=== PATIENT | female | born 1985 | race Caucasian/White ===

== ENCOUNTER 2017-07-11 12:10 | Emergency (ER) | payer MEDICAID ==
[~2017-07-11] VITALS: Wt 113.4 kg
[~2017-07-11 12:10] MED LIST: BP MEDICATION
[2017-07-11] MEDS ORDERED: SOD CHLORIDE 0.9% 1,000 ML IV STA (15:27)
[2017-07-11] MEDS ORDERED: KETOROLAC 30 MG INJ IV STA (15:27)
[2017-07-11] MEDS ORDERED: DIPHENHYDRAMINE 50 MG INJ IV ONE (15:30)
[2017-07-11] MEDS ORDERED: METOCLOPRAMIDE 10 MG INJ IV ONE (15:30)
--- NOTE | 2017-07-11 15:59 | RADRPT ---
PROCEDURE: XR Chest. CLINICAL INDICATION: Chest pain TECHNIQUE: Single frontal view of the chest was obtained COMPARISON: None FINDINGS: No pleural effusion or pneumothorax. No consolidation. Unremarkable cardiomediastinal silhouette. No acute osseous abnormality. IMPRESSION: No acute cardiopulmonary disease. RPTAT: EE James Hager Physician Date Time Electronically viewed and signed by James Hager Physician on 07/11/2017 15:59 /
--- NOTE | 2017-07-11 16:58 | RADRPT ---
PROCEDURE: CT Brain without contrast. CLINICAL INDICATION: Headache, lightheadedness and dizziness. TECHNIQUE: A CT of the brain was performed on a multidetector CT scanner utilizing axial sections from the skull base through the vertex without contrast. Images were reviewed on a high-resolution [employer] workstation. Exam CTDI = 44.81 mGy and the DLP = 720.23 mGy-cm. One or more of the following dose reduction techniques were used: Automated exposure control Adjustment of the mA and/or kV according to patient size. Use of iterative reconstruction technique. COMPARISON: None available FINDINGS: There is no evidence of intracranial hemorrhage, mass effect or midline shift. No abnormal intra-ax ial or extra-axial fluid collections are seen. The density of the brain is normal and the bailon/whit e matter differentiation is well preserved. The osseous structures are unremarkable. The paranasal sinuses are clear. IMPRESSION: 1. No intracranial hemorrhage, mass effect or midline shift. RPTAT: BB .John Allen MD, MD Date Time Electronically viewed and signed by .John Allen MD, on 07/11/2017 16:58 .O/
[2017-07-11] MEDS ORDERED: IBUP-1542 PO (18:16)
--- NOTE | 2017-07-11 18:53 | ERD ---
ER Documentation Chief Complaint Chief Complaint LEFT SHOULDER PAIN, NECK PAIN, ONSET TODAY, NO SOB, NO INJURY HPI This is a 32-year-old female presenting to emerge department for headache, nausea, dizziness and heart palpitations starting today. Patient states she has had intermittent symptoms for several months however his symptoms worsened today. No fevers or chills. Patient denies chest pain or chest pressure. No shortness breath or difficulty breathing. No recent injury or fall. Patient did not hit her head. No loss of consciousness. No abdominal pain. No nausea or vomiting. No visual changes, loss of vision, flashes of lights or veil/ curtain coming down over eye. ROS All systems reviewed and are negative except as per history of present illness. Medications Home Meds Active Scripts Ibuprofen* (Motrin*) 600 Mg Tab, 600 MG PO Q6, #30 TAB Prov:GILESHALINA Castellon NP 07/11/17 Reported Medications [Bp Medication] No Conflict Check 03/03/12 Allergies Allergies: Coded Allergies: No Known Allergy (Unverified , 07/11/17) PMhx/Soc History of Surgery: No Anesthesia Reaction: No Hx Neurological Disorder: No Hx Respiratory Disorders: No Hx Cardiac Disorders: No Hx Psychiatric Problems: No Hx Miscellaneous Medical Probl: Yes (HTN) Hx Alcohol Use: No Hx Substance Use: No Hx Tobacco Use: No Smoking Status: Never smoker Physical Exam Vitals Vital Signs Date Time Temp Pulse Resp B/P Pulse Ox O2 Delivery O2 Flow Rate FiO2 07/11/17 12:14 98.9 81 17 128/68 98 Physical Exam Const: No acute distress, alert Head: Atraumatic Eyes: Normal Conjunctiva ENT: Normal External Ears, Nose and Mouth. Neck: Full range of motion..~ No meningismus. Resp: Clear to auscultation bilaterally. No wheezing, rhonchi or crackles. No stridor or labored breathing. Cardio: Regular rate and rhythm, no murmurs Abd: Soft, non tender, non distended. Normal bowel sounds Skin: No petechiae or rashes Back: No midline or flank tenderness Ext: No cyanosis, or edema Neur: Awake and alert Psych: Normal Mood and Affect Result Diagram: 07/11/17 1529 07/11/17 1529 Results 24 hrs Laboratory Tests Test 07/11/17 15:29 07/11/17 15:48 White Blood Count 11.210^3/ul Red Blood Count 5.0910^6/ul Hemoglobin 14.3g/dl Hematocrit 45.8% Mean Corpuscular Volume 90.0fl Mean Corpuscular Hemoglobin 28.1pg Mean Corpuscular Hemoglobin Concent 31.2g/dl Red Cell Distribution Width 12.9% Platelet Count 14209^3/UL Mean Platelet Volume 9.5fl Neutrophils % 69.6% Lymphocytes % 20.8% Monocytes % 8.2% Eosinophils % 0.7% Basophils % 0.3% Nucleated Red Blood Cells % 0.0/100WBC Neutrophils # 7.810^3/ul Lymphocytes # 2.310^3/ul Monocytes # 0.910^3/ul Eosinophils # 0.110^3/ul Basophils # 0.010^3/ul Nucleated Red Blood Cells # 0.010^3/ul Sodium Level 142mmol/L Potassium Level 3.9mmol/L Chloride Level 104mmol/L Carbon Dioxide Level 29mmol/L Anion Gap 13 Blood Urea Nitrogen 12mg/dl Creatinine 0.60mg/dl Glucose Level 108mg/dl Calcium Level 8.8mg/dl Troponin I < 0.012ng/ml Bedside Urine pH (LAB) 5.5 Bedside Urine Protein (LAB) Trace Bedside Urine Glucose (UA) Negative Bedside Urine Ketones (LAB) Negative Bedside Urine Blood Negative Bedside Urine Nitrite (LAB) Negative Bedside Urine Leukocyte Esterase (L Negative Current Medications Medications (Trade) Dose Ordered Sig/Josh Route PRN Reason Start Time Stop Time Status Last Admin Dose Admin Sodium Chloride (NS) 1,000 ml @ 1,000 mls/hr Q1H STAT IV 07/11/17 15:27 07/11/17 16:26 DC 07/11/17 15:27 Ketorolac Tromethamine (Toradol) 30 mg ONCE STAT IV 07/11/17 15:27 07/11/17 15:32 DC 07/11/17 15:27 Metoclopramide HCl (Reglan) 5 mg ONCE ONCE IV 07/11/17 15:30 07/11/17 15:32 DC 07/11/17 15:30 Diphenhydramine HCl (Benadryl) 25 mg ONCE ONCE IV 07/11/17 15:30 07/11/17 15:32 DC 07/11/17 15:30 Procedures/MDM [place] [address] Radiology Main Line: [phone] DIAGNOSTIC IMAGING REPORT Patient: NISSA OLEARY : 1985 Age: 32 Sex: F MR #: [id number] DOS: 07/11/17 1527 Ordering MD: HALINA PRINCE NP Location: FTE Room/Bed: PROCEDURE: XR Chest. CLINICAL INDICATION: Chest pain TECHNIQUE: Single frontal view of the chest was obtained COMPARISON: None FINDINGS: No pleural effusion or pneumothorax. No consolidation. Unremarkable cardiomediastinal silhouette. No acute osseous abnormality. IMPRESSION: No acute cardiopulmonary disease. [place] [address] Radiology Main Line: [phone] DIAGNOSTIC IMAGING REPORT Patient: NISSA OLEARY : 1985 Age: 32 Sex: F MR #: [id number] DOS: 07/11/17 1527 Ordering MD: HALINA PRINCE NP Location: FTE Room/Bed: PROCEDURE: CT Brain without contrast. CLINICAL INDICATION: Headache, lightheadedness and dizziness. TECHNIQUE: A CT of the brain was performed on a multidetector CT scanner utilizing axial sections from the skull base through the vertex without contrast. Images were reviewed on a high-resolution PACS workstation. Exam CTDI = 44.81 mGy and the DLP = 720.23 mGy-cm. One or more of the following dose reduction techniques were used: Automated exposure control Adjustment of the mA and/or kV according to patient size. Use of iterative reconstruction technique. COMPARISON: None available FINDINGS: There is no evidence of intracranial hemorrhage, mass effect or midline shift. No abnormal intra-axial or extra-axial fluid collections are seen. The density of the brain is normal and the bailon/white matter differentiation is well preserved. The osseous structures are unremarkable. The paranasal sinuses are clear. IMPRESSION: 1. No intracranial hemorrhage, mass effect or midline shift. MDM: This is a 32-year-old female presenting to emerge department with headache , nausea, dizziness and heart palpitations starting today. Patient is afebrile vital signs are stable. Patient appears in no acute distress and alert. CBC shows no significant anemia or infection. BMP shows no significant electrolyte imbalance. Normal creatinine BUN. Normal glucose. Troponin is negative. Chest x-ray reviewed by radiologist as no acute cardiopulmonary disease. CT brain reviewed by radiologist as no intracranial hemorrhage, mass-effect or midline shift. Patient given Benadryl 25mg l IV, Reglan 5mg IV and Toradol 30mg IV. Patient also given 1 L IV fluid bolus of normal saline. On reassessment, patient states pain has improved. No fevers or chills. No diplopia, loss of vision or blurry vision. No photophobia. No trauma to head or fall. No loss of consciousness. No nausea or vomiting. No confusion or altered mental status. Patient denies ataxic gait , slurred speech, numbness of the face or body, weakness, clumsiness, or incoordination. Low suspicion for CVA, TIA, meningitis, subdural hematoma, intracranial hemorrhage or mass. Differential diagnosis includes but not limited to tension headache, migraine headache, cluster headache, sinus headache, sinusitis, trigeminal neuralgia, herpes zoster and postherpetic neuralgia. Patient is appropriate for outpatient management will be given prescription for Ibuprofen. Instructed patient to follow-up with primary care provider in the next 2-3 days for reassessment. Resources provided. Return to ED for any high fever, chest pain, difficulty breathing, shortness breath, wheezing, vomiting, diarrhea, abdominal pain or any new or worsening symptoms. Patient verbalizes understanding. All questions answered at discharge. Disclaimer: Inadvertent spelling and grammatical errors are likely due to EHR/ dictation software use and do not reflect on the overall quality of patient care. Also, please note that the electronic time recorded on this note does not necessarily reflect the actual time of the patient encounter. Departure Diagnosis: Primary Impression: Headache Headache type: unspecified Headache chronicity pattern: acute headache Intractability: not intractable Qualified Code: R51 - Acute nonintractable headache, unspecified headache type Condition: Stable Patient Instructions: Self-Care for Headaches Referrals: COMMUNITY CLINICS YOU HAVE RECEIVED A MEDICAL SCREENING EXAM AND THE RESULTS INDICATE THAT YOU DO NOT HAVE A CONDITION THAT REQUIRES URGENT TREATMENT IN THE EMERGENCY DEPARTMENT. FURTHER EVALUATION AND TREATMENT OF YOUR CONDITION CAN WAIT UNTIL YOU ARE SEEN IN YOUR DOCTORS OFFICE WITHIN THE NEXT 1-2 DAYS. IT IS YOUR RESPONSIBILITY TO MAKE AN APPOINTMENT FOR FOLOW-UP CARE. IF YOU HAVE A PRIMARY DOCTOR --you should call your primary doctor and schedule an appointment IF YOU DO NOT HAVE A PRIMARY DOCTOR YOU CAN CALL OUR PHYSICIAN REFERRAL HOTLINE AT IF YOU CAN NOT AFFORD TO SEE A PHYSICIAN YOU CAN CHOSE FROM THE FOLLOWING [facility] [address] [facility] [address] [facility] [address] [facility] [address] [facility] [address] [facility]. [facility] [address] [facility]. [facility] YOU HAVE RECEIVED A MEDICAL SCREENING EXAM AND THE RESULTS INDICATE THAT YOU DO NOT HAVE A CONDITION THAT REQUIRES URGENT TREATMENT IN THE EMERGENCY DEPARTMENT. FURTHER EVALUATION AND TREATMENT OF YOUR CONDITION CAN WAIT UNTIL YOU ARE SEEN IN YOUR DOCTORS OFFICE WITHIN THE NEXT 1-2 DAYS. IT IS YOUR RESPONSIBILITY TO MAKE AN APPOINTMENT FOR FOLOW-UP CARE. IF YOU HAVE A PRIMARY DOCTOR --you should call your primary doctor and schedule and appointment IF YOU DO NOT HAVE A PRIMARY DOCTOR YOU CAN CALL OUR PHYSICIAN REFERRAL HOTLINE AT . IF YOU CAN NOT AFFORD TO SEE A PHYSICIAN YOU CAN CHOSE FROM THE FOLLOWING [facility]: [facility] [address] [place] [address] [facility] [address] [place] [address] [facility] + [facility] [address] [place] [address] Additional Instructions: Call your primary care doctor TOMORROW for an appointment during the next 2-3 days.See the doctor sooner or return here if your condition worsens before your appointment time. Return to ED for any high fever, chest pain, difficulty breathing, shortness breath, wheezing, vomiting, diarrhea, abdominal pain or any new or worsening symptoms. HALINA SKAGGS NP Jul 11, 2017 18:53
--- NOTE | 2017-07-11 18:53 | ERD ---
ER Documentation Chief Complaint Chief Complaint LEFT SHOULDER PAIN, NECK PAIN, ONSET TODAY, NO SOB, NO INJURY HPI This is a 32-year-old female presenting to emerge department for headache, nausea, dizziness and heart palpitations starting today. Patient states she has had intermittent symptoms for several months however his symptoms worsened today. No fevers or chills. Patient denies chest pain or chest pressure. No shortness breath or difficulty breathing. No recent injury or fall. Patient did not hit her head. No loss of consciousness. No abdominal pain. No nausea or vomiting. No visual changes, loss of vision, flashes of lights or veil/ curtain coming down over eye. ROS All systems reviewed and are negative except as per history of present illness. Medications Home Meds Active Scripts Ibuprofen* (Motrin*) 600 Mg Tab, 600 MG PO Q6, #30 TAB Prov:GILESHALINA Castellon NP 07/11/17 Reported Medications [Bp Medication] No Conflict Check 03/03/12 Allergies Allergies: Coded Allergies: No Known Allergy (Unverified , 07/11/17) PMhx/Soc History of Surgery: No Anesthesia Reaction: No Hx Neurological Disorder: No Hx Respiratory Disorders: No Hx Cardiac Disorders: No Hx Psychiatric Problems: No Hx Miscellaneous Medical Probl: Yes (HTN) Hx Alcohol Use: No Hx Substance Use: No Hx Tobacco Use: No Smoking Status: Never smoker Physical Exam Vitals Vital Signs Date Time Temp Pulse Resp B/P Pulse Ox O2 Delivery O2 Flow Rate FiO2 07/11/17 12:14 98.9 81 17 128/68 98 Physical Exam Const: No acute distress, alert Head: Atraumatic Eyes: Normal Conjunctiva ENT: Normal External Ears, Nose and Mouth. Neck: Full range of motion..~ No meningismus. Resp: Clear to auscultation bilaterally. No wheezing, rhonchi or crackles. No stridor or labored breathing. Cardio: Regular rate and rhythm, no murmurs Abd: Soft, non tender, non distended. Normal bowel sounds Skin: No petechiae or rashes Back: No midline or flank tenderness Ext: No cyanosis, or edema Neur: Awake and alert Psych: Normal Mood and Affect Result Diagram: 07/11/17 1529 07/11/17 1529 Results 24 hrs Laboratory Tests Test 07/11/17 15:29 07/11/17 15:48 White Blood Count 11.210^3/ul Red Blood Count 5.0910^6/ul Hemoglobin 14.3g/dl Hematocrit 45.8% Mean Corpuscular Volume 90.0fl Mean Corpuscular Hemoglobin 28.1pg Mean Corpuscular Hemoglobin Concent 31.2g/dl Red Cell Distribution Width 12.9% Platelet Count 00691^3/UL Mean Platelet Volume 9.5fl Neutrophils % 69.6% Lymphocytes % 20.8% Monocytes % 8.2% Eosinophils % 0.7% Basophils % 0.3% Nucleated Red Blood Cells % 0.0/100WBC Neutrophils # 7.810^3/ul Lymphocytes # 2.310^3/ul Monocytes # 0.910^3/ul Eosinophils # 0.110^3/ul Basophils # 0.010^3/ul Nucleated Red Blood Cells # 0.010^3/ul Sodium Level 142mmol/L Potassium Level 3.9mmol/L Chloride Level 104mmol/L Carbon Dioxide Level 29mmol/L Anion Gap 13 Blood Urea Nitrogen 12mg/dl Creatinine 0.60mg/dl Glucose Level 108mg/dl Calcium Level 8.8mg/dl Troponin I < 0.012ng/ml Bedside Urine pH (LAB) 5.5 Bedside Urine Protein (LAB) Trace Bedside Urine Glucose (UA) Negative Bedside Urine Ketones (LAB) Negative Bedside Urine Blood Negative Bedside Urine Nitrite (LAB) Negative Bedside Urine Leukocyte Esterase (L Negative Current Medications Medications (Trade) Dose Ordered Sig/Josh Route PRN Reason Start Time Stop Time Status Last Admin Dose Admin Sodium Chloride (NS) 1,000 ml @ 1,000 mls/hr Q1H STAT IV 07/11/17 15:27 07/11/17 16:26 DC 07/11/17 15:27 Ketorolac Tromethamine (Toradol) 30 mg ONCE STAT IV 07/11/17 15:27 07/11/17 15:32 DC 07/11/17 15:27 Metoclopramide HCl (Reglan) 5 mg ONCE ONCE IV 07/11/17 15:30 07/11/17 15:32 DC 07/11/17 15:30 Diphenhydramine HCl (Benadryl) 25 mg ONCE ONCE IV 07/11/17 15:30 07/11/17 15:32 DC 07/11/17 15:30 Procedures/MDM [place] [address] Radiology Main Line: [phone] DIAGNOSTIC IMAGING REPORT Patient: NISSA OLEARY : 1985 Age: 32 Sex: F MR #: [id number] DOS: 07/11/17 1527 Ordering MD: HALINA PRINCE NP Location: FTE Room/Bed: PROCEDURE: XR Chest. CLINICAL INDICATION: Chest pain TECHNIQUE: Single frontal view of the chest was obtained COMPARISON: None FINDINGS: No pleural effusion or pneumothorax. No consolidation. Unremarkable cardiomediastinal silhouette. No acute osseous abnormality. IMPRESSION: No acute cardiopulmonary disease. [place] [address] Radiology Main Line: [phone] DIAGNOSTIC IMAGING REPORT Patient: NISSA OLEARY : 1985 Age: 32 Sex: F MR #: [id number] DOS: 07/11/17 1527 Ordering MD: HALINA PRINCE NP Location: FTE Room/Bed: PROCEDURE: CT Brain without contrast. CLINICAL INDICATION: Headache, lightheadedness and dizziness. TECHNIQUE: A CT of the brain was performed on a multidetector CT scanner utilizing axial sections from the skull base through the vertex without contrast. Images were reviewed on a high-resolution PACS workstation. Exam CTDI = 44.81 mGy and the DLP = 720.23 mGy-cm. One or more of the following dose reduction techniques were used: Automated exposure control Adjustment of the mA and/or kV according to patient size. Use of iterative reconstruction technique. COMPARISON: None available FINDINGS: There is no evidence of intracranial hemorrhage, mass effect or midline shift. No abnormal intra-axial or extra-axial fluid collections are seen. The density of the brain is normal and the bailon/white matter differentiation is well preserved. The osseous structures are unremarkable. The paranasal sinuses are clear. IMPRESSION: 1. No intracranial hemorrhage, mass effect or midline shift. MDM: This is a 32-year-old female presenting to emerge department with headache , nausea, dizziness and heart palpitations starting today. Patient is afebrile vital signs are stable. Patient appears in no acute distress and alert. CBC shows no significant anemia or infection. BMP shows no significant electrolyte imbalance. Normal creatinine BUN. Normal glucose. Troponin is negative. Chest x-ray reviewed by radiologist as no acute cardiopulmonary disease. CT brain reviewed by radiologist as no intracranial hemorrhage, mass-effect or midline shift. Patient given Benadryl 25mg l IV, Reglan 5mg IV and Toradol 30mg IV. Patient also given 1 L IV fluid bolus of normal saline. On reassessment, patient states pain has improved. No fevers or chills. No diplopia, loss of vision or blurry vision. No photophobia. No trauma to head or fall. No loss of consciousness. No nausea or vomiting. No confusion or altered mental status. Patient denies ataxic gait , slurred speech, numbness of the face or body, weakness, clumsiness, or incoordination. Low suspicion for CVA, TIA, meningitis, subdural hematoma, intracranial hemorrhage or mass. Differential diagnosis includes but not limited to tension headache, migraine headache, cluster headache, sinus headache, sinusitis, trigeminal neuralgia, herpes zoster and postherpetic neuralgia. Patient is appropriate for outpatient management will be given prescription for Ibuprofen. Instructed patient to follow-up with primary care provider in the next 2-3 days for reassessment. Resources provided. Return to ED for any high fever, chest pain, difficulty breathing, shortness breath, wheezing, vomiting, diarrhea, abdominal pain or any new or worsening symptoms. Patient verbalizes understanding. All questions answered at discharge. Disclaimer: Inadvertent spelling and grammatical errors are likely due to EHR/ dictation software use and do not reflect on the overall quality of patient care. Also, please note that the electronic time recorded on this note does not necessarily reflect the actual time of the patient encounter. Departure Diagnosis: Primary Impression: Headache Headache type: unspecified Headache chronicity pattern: acute headache Intractability: not intractable Qualified Code: R51 - Acute nonintractable headache, unspecified headache type Condition: Stable Patient Instructions: Self-Care for Headaches Referrals: COMMUNITY CLINICS YOU HAVE RECEIVED A MEDICAL SCREENING EXAM AND THE RESULTS INDICATE THAT YOU DO NOT HAVE A CONDITION THAT REQUIRES URGENT TREATMENT IN THE EMERGENCY DEPARTMENT. FURTHER EVALUATION AND TREATMENT OF YOUR CONDITION CAN WAIT UNTIL YOU ARE SEEN IN YOUR DOCTORS OFFICE WITHIN THE NEXT 1-2 DAYS. IT IS YOUR RESPONSIBILITY TO MAKE AN APPOINTMENT FOR FOLOW-UP CARE. IF YOU HAVE A PRIMARY DOCTOR --you should call your primary doctor and schedule an appointment IF YOU DO NOT HAVE A PRIMARY DOCTOR YOU CAN CALL OUR PHYSICIAN REFERRAL HOTLINE AT IF YOU CAN NOT AFFORD TO SEE A PHYSICIAN YOU CAN CHOSE FROM THE FOLLOWING [facility] [address] [facility] [address] [facility] [facility] [address] [facility] [address] [facility] [address] [facility]. [facility] [address] [facility]. [facility] YOU HAVE RECEIVED A MEDICAL SCREENING EXAM AND THE RESULTS INDICATE THAT YOU DO NOT HAVE A CONDITION THAT REQUIRES URGENT TREATMENT IN THE EMERGENCY DEPARTMENT. FURTHER EVALUATION AND TREATMENT OF YOUR CONDITION CAN WAIT UNTIL YOU ARE SEEN IN YOUR DOCTORS OFFICE WITHIN THE NEXT 1-2 DAYS. IT IS YOUR RESPONSIBILITY TO MAKE AN APPOINTMENT FOR FOLOW-UP CARE. IF YOU HAVE A PRIMARY DOCTOR --you should call your primary doctor and schedule and appointment IF YOU DO NOT HAVE A PRIMARY DOCTOR YOU CAN CALL OUR PHYSICIAN REFERRAL HOTLINE AT . IF YOU CAN NOT AFFORD TO SEE A PHYSICIAN YOU CAN CHOSE FROM THE FOLLOWING [facility]: [facility] [address] [place] [address] [facility] [address] [place] [address] [facility] [address] [place] [address] Additional Instructions: Call your primary care doctor TOMORROW for an appointment during the next 2-3 days.See the doctor sooner or return here if your condition worsens before your appointment time. Return to ED for any high fever, chest pain, difficulty breathing, shortness breath, wheezing, vomiting, diarrhea, abdominal pain or any new or worsening symptoms. HALINA SKAGGS NP Jul 11, 2017 18:53
--- NOTE | 2017-07-11 18:53 | ERD ---
ER Documentation Chief Complaint Chief Complaint LEFT SHOULDER PAIN, NECK PAIN, ONSET TODAY, NO SOB, NO INJURY HPI This is a 32-year-old female presenting to emerge department for headache, nausea, dizziness and heart palpitations starting today. Patient states she has had intermittent symptoms for several months however his symptoms worsened today. No fevers or chills. Patient denies chest pain or chest pressure. No shortness breath or difficulty breathing. No recent injury or fall. Patient did not hit her head. No loss of consciousness. No abdominal pain. No nausea or vomiting. No visual changes, loss of vision, flashes of lights or veil/ curtain coming down over eye. ROS All systems reviewed and are negative except as per history of present illness. Medications Home Meds Active Scripts Ibuprofen* (Motrin*) 600 Mg Tab, 600 MG PO Q6, #30 TAB Prov:GILESHALINA Castellon NP 07/11/17 Reported Medications [Bp Medication] No Conflict Check 03/03/12 Allergies Allergies: Coded Allergies: No Known Allergy (Unverified , 07/11/17) PMhx/Soc History of Surgery: No Anesthesia Reaction: No Hx Neurological Disorder: No Hx Respiratory Disorders: No Hx Cardiac Disorders: No Hx Psychiatric Problems: No Hx Miscellaneous Medical Probl: Yes (HTN) Hx Alcohol Use: No Hx Substance Use: No Hx Tobacco Use: No Smoking Status: Never smoker Physical Exam Vitals Vital Signs Date Time Temp Pulse Resp B/P Pulse Ox O2 Delivery O2 Flow Rate FiO2 07/11/17 12:14 98.9 81 17 128/68 98 Physical Exam Const: No acute distress, alert Head: Atraumatic Eyes: Normal Conjunctiva ENT: Normal External Ears, Nose and Mouth. Neck: Full range of motion..~ No meningismus. Resp: Clear to auscultation bilaterally. No wheezing, rhonchi or crackles. No stridor or labored breathing. Cardio: Regular rate and rhythm, no murmurs Abd: Soft, non tender, non distended. Normal bowel sounds Skin: No petechiae or rashes Back: No midline or flank tenderness Ext: No cyanosis, or edema Neur: Awake and alert Psych: Normal Mood and Affect Result Diagram: 07/11/17 1529 07/11/17 1529 Results 24 hrs Laboratory Tests Test 07/11/17 15:29 07/11/17 15:48 White Blood Count 11.210^3/ul Red Blood Count 5.0910^6/ul Hemoglobin 14.3g/dl Hematocrit 45.8% Mean Corpuscular Volume 90.0fl Mean Corpuscular Hemoglobin 28.1pg Mean Corpuscular Hemoglobin Concent 31.2g/dl Red Cell Distribution Width 12.9% Platelet Count 02406^3/UL Mean Platelet Volume 9.5fl Neutrophils % 69.6% Lymphocytes % 20.8% Monocytes % 8.2% Eosinophils % 0.7% Basophils % 0.3% Nucleated Red Blood Cells % 0.0/100WBC Neutrophils # 7.810^3/ul Lymphocytes # 2.310^3/ul Monocytes # 0.910^3/ul Eosinophils # 0.110^3/ul Basophils # 0.010^3/ul Nucleated Red Blood Cells # 0.010^3/ul Sodium Level 142mmol/L Potassium Level 3.9mmol/L Chloride Level 104mmol/L Carbon Dioxide Level 29mmol/L Anion Gap 13 Blood Urea Nitrogen 12mg/dl Creatinine 0.60mg/dl Glucose Level 108mg/dl Calcium Level 8.8mg/dl Troponin I < 0.012ng/ml Bedside Urine pH (LAB) 5.5 Bedside Urine Protein (LAB) Trace Bedside Urine Glucose (UA) Negative Bedside Urine Ketones (LAB) Negative Bedside Urine Blood Negative Bedside Urine Nitrite (LAB) Negative Bedside Urine Leukocyte Esterase (L Negative Current Medications Medications (Trade) Dose Ordered Sig/Josh Route PRN Reason Start Time Stop Time Status Last Admin Dose Admin Sodium Chloride (NS) 1,000 ml @ 1,000 mls/hr Q1H STAT IV 07/11/17 15:27 07/11/17 16:26 DC 07/11/17 15:27 Ketorolac Tromethamine (Toradol) 30 mg ONCE STAT IV 07/11/17 15:27 07/11/17 15:32 DC 07/11/17 15:27 Metoclopramide HCl (Reglan) 5 mg ONCE ONCE IV 07/11/17 15:30 07/11/17 15:32 DC 07/11/17 15:30 Diphenhydramine HCl (Benadryl) 25 mg ONCE ONCE IV 07/11/17 15:30 07/11/17 15:32 DC 07/11/17 15:30 Procedures/MDM [place] [address] Radiology Main Line: [phone] DIAGNOSTIC IMAGING REPORT Patient: NISSA OLEARY : 1985 Age: 32 Sex: F MR #: [id number] DOS: 07/11/17 1527 Ordering MD: HALINA PRINCE NP Location: [facility] Room/Bed: PROCEDURE: XR Chest. CLINICAL INDICATION: Chest pain TECHNIQUE: Single frontal view of the chest was obtained COMPARISON: None FINDINGS: No pleural effusion or pneumothorax. No consolidation. Unremarkable cardiomediastinal silhouette. No acute osseous abnormality. IMPRESSION: No acute cardiopulmonary disease. [place] [address] Radiology Main Line: [phone] DIAGNOSTIC IMAGING REPORT Patient: NISSA OLEARY : 1985 Age: 32 Sex: F MR #: [id number] DOS: 07/11/17 1527 Ordering MD: HALINA PRINCE NP Location: [facility] Room/Bed: PROCEDURE: CT Brain without contrast. CLINICAL INDICATION: Headache, lightheadedness and dizziness. TECHNIQUE: A CT of the brain was performed on a multidetector CT scanner utilizing axial sections from the skull base through the vertex without contrast. Images were reviewed on a high-resolution PACS workstation. Exam CTDI = 44.81 mGy and the DLP = 720.23 mGy-cm. One or more of the following dose reduction techniques were used: Automated exposure control Adjustment of the mA and/or kV according to patient size. Use of iterative reconstruction technique. COMPARISON: None available FINDINGS: There is no evidence of intracranial hemorrhage, mass effect or midline shift. No abnormal intra-axial or extra-axial fluid collections are seen. The density of the brain is normal and the bailon/white matter differentiation is well preserved. The osseous structures are unremarkable. The paranasal sinuses are clear. IMPRESSION: 1. No intracranial hemorrhage, mass effect or midline shift. MDM: This is a 32-year-old female presenting to emerge department with headache , nausea, dizziness and heart palpitations starting today. Patient is afebrile vital signs are stable. Patient appears in no acute distress and alert. CBC shows no significant anemia or infection. BMP shows no significant electrolyte imbalance. Normal creatinine BUN. Normal glucose. Troponin is negative. Chest x-ray reviewed by radiologist as no acute cardiopulmonary disease. CT brain reviewed by radiologist as no intracranial hemorrhage, mass-effect or midline shift. Patient given Benadryl 25mg l IV, Reglan 5mg IV and Toradol 30mg IV. Patient also given 1 L IV fluid bolus of normal saline. On reassessment, patient states pain has improved. No fevers or chills. No diplopia, loss of vision or blurry vision. No photophobia. No trauma to head or fall. No loss of consciousness. No nausea or vomiting. No confusion or altered mental status. Patient denies ataxic gait , slurred speech, numbness of the face or body, weakness, clumsiness, or incoordination. Low suspicion for CVA, TIA, meningitis, subdural hematoma, intracranial hemorrhage or mass. Differential diagnosis includes but not limited to tension headache, migraine headache, cluster headache, sinus headache, sinusitis, trigeminal neuralgia, herpes zoster and postherpetic neuralgia. Patient is appropriate for outpatient management will be given prescription for Ibuprofen. Instructed patient to follow-up with primary care provider in the next 2-3 days for reassessment. Resources provided. Return to ED for any high fever, chest pain, difficulty breathing, shortness breath, wheezing, vomiting, diarrhea, abdominal pain or any new or worsening symptoms. Patient verbalizes understanding. All questions answered at discharge. Disclaimer: Inadvertent spelling and grammatical errors are likely due to EHR/ dictation software use and do not reflect on the overall quality of patient care. Also, please note that the electronic time recorded on this note does not necessarily reflect the actual time of the patient encounter. Departure Diagnosis: Primary Impression: Headache Headache type: unspecified Headache chronicity pattern: acute headache Intractability: not intractable Qualified Code: R51 - Acute nonintractable headache, unspecified headache type Condition: Stable Patient Instructions: Self-Care for Headaches Referrals: COMMUNITY CLINICS YOU HAVE RECEIVED A MEDICAL SCREENING EXAM AND THE RESULTS INDICATE THAT YOU DO NOT HAVE A CONDITION THAT REQUIRES URGENT TREATMENT IN THE EMERGENCY DEPARTMENT. FURTHER EVALUATION AND TREATMENT OF YOUR CONDITION CAN WAIT UNTIL YOU ARE SEEN IN YOUR DOCTORS OFFICE WITHIN THE NEXT 1-2 DAYS. IT IS YOUR RESPONSIBILITY TO MAKE AN APPOINTMENT FOR FOLOW-UP CARE. IF YOU HAVE A PRIMARY DOCTOR --you should call your primary doctor and schedule an appointment IF YOU DO NOT HAVE A PRIMARY DOCTOR YOU CAN CALL OUR PHYSICIAN REFERRAL HOTLINE AT IF YOU CAN NOT AFFORD TO SEE A PHYSICIAN YOU CAN CHOSE FROM THE FOLLOWING [facility] [address] [facility] [address] [address] [facility] [address] [facility] [address] [facility] [address] [facility] [address] [facility]. [facility] YOU HAVE RECEIVED A MEDICAL SCREENING EXAM AND THE RESULTS INDICATE THAT YOU DO NOT HAVE A CONDITION THAT REQUIRES URGENT TREATMENT IN THE EMERGENCY DEPARTMENT. FURTHER EVALUATION AND TREATMENT OF YOUR CONDITION CAN WAIT UNTIL YOU ARE SEEN IN YOUR DOCTORS OFFICE WITHIN THE NEXT 1-2 DAYS. IT IS YOUR RESPONSIBILITY TO MAKE AN APPOINTMENT FOR FOLOW-UP CARE. IF YOU HAVE A PRIMARY DOCTOR --you should call your primary doctor and schedule and appointment IF YOU DO NOT HAVE A PRIMARY DOCTOR YOU CAN CALL OUR PHYSICIAN REFERRAL HOTLINE AT . IF YOU CAN NOT AFFORD TO SEE A PHYSICIAN YOU CAN CHOSE FROM THE FOLLOWING [facility]: [facility] [address] [place] [address] [facility] [address] [place] [address] [facility] + [facility] [address] [place] [address] Additional Instructions: Call your primary care doctor TOMORROW for an appointment during the next 2-3 days.See the doctor sooner or return here if your condition worsens before your appointment time. Return to ED for any high fever, chest pain, difficulty breathing, shortness breath, wheezing, vomiting, diarrhea, abdominal pain or any new or worsening symptoms. HALINA SKAGGS NP Jul 11, 2017 18:53
[2017-07-11 18:55] VITALS: BP 105/75; PULSE 64; RESP 20; TEMP 98.1
== END 2017-07-11 18:56 | disposition home or self-care (01) ==
LOC: FTE 12:10
DX: R51 Headache (principal); I10 Essential (primary) hypertension
CPT/HCPCS: 70450; 71010; 80048; 81003; 84484; 85025; 96374; 96375; J1200; J1885; J2765; J7030; Z7502